=== PATIENT | male | born 1990 | race Two or more races ===

== ENCOUNTER 2018-09-25 16:20 | Emergency (ER) | payer SELFPAY ==
[~2018-09-25] VITALS: Ht 177.8 cm; Wt 81.6 kg
[2018-09-25 16:25] VITALS: BP 150/90
[2018-09-25 18:54] LABS: Basophils # (auto) 0 uL; Basophils % (auto) 0.1 % (0.0-2.0); Eosinophils # (auto) 0.3 uL; Hematocrit 44.9 % (41.0-53.0); Hemoglobin 14.9 g/dL (13.5-17.5); Mean Corpuscular Hemoglobin 29.7 pg (28.0-32.0); Mean Corpuscular Hgb Conc. 33.2 g/dL (32.0-36.0); Mean Corpuscular Volume 89.5 fL (80.0-100.0); Monocytes # (auto) 0.6 uL; Monocytes % (auto) 3.5 % (0.0-12.0); Neutrophils % (auto) 88.4 % (37.0-80.0); Platelet Count (auto) 309 10^3/uL (140-450); Red Blood Cells 5.02 10^6/uL (4.5-5.90); Red Cell Distribution Width 14.7 % (11.8-14.3); White Blood Cell 15.8 10^3/uL (4.4-10.8)
[2018-09-25 19:08] LABS: Potassium 3.7 mmol/L (3.5-5.1)
[2018-09-25 19:12] LABS: Albumin 4.1 g/dL (3.4-5.0); BUN/Creatinine Ratio 17.1; Calcium 8.5 mg/dL (8.5-10.1)
[2018-09-25 19:13] LABS: Bilirubin, Total 0.8 mg/dL (0.2-1.0); Total Protein 7.7 g/dL (6.4-8.2)
[2018-09-25 21:16] LABS: Salicylate < 1.7 mg/dL (2.8-20.0)
[2018-09-25 21:33] LABS: Acetaminophen < 2.0 ug/mL (10-30)
== END 2018-09-26 06:10 | disposition left against medical advice (07) ==
LOC: EDBD 16:20 → ER 16:20
DX: R10.9 Unspecified abdominal pain (principal); R11.2 Nausea with vomiting, unspecified; Z53.21 Procedure and treatment not carried out due to patient leaving prior to being seen by health care provider
CPT/HCPCS: 36415; 80053; 80320; 80329; 82150; 83690; 85025